=== PATIENT | male | born 1960 | race African-American/Black ===

== ENCOUNTER 2016-03-27 09:45 | Emergency (ER) | payer OTHER ==
[2016-03-27 10:03] VITALS: TEMP 98.1; BMI 28.8
[2016-03-27] MEDS ORDERED: SODIUM CHLORIDE 1,000 ML IV ONE (10:54)
[2016-03-27] MEDS ORDERED: KETOROLAC TROMETHAMINE 30 MG/1 ML VIAL IVPUSH ONE (10:54)
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
[2016-03-27] MEDS ORDERED: SODIUM CHLORIDE FOR INHALATION 3 ML VIAL.NEB IH ONE (10:58)
[2016-03-27] MEDS ORDERED: KETOROLAC TROMETHAMINE 30 MG/1 ML VIAL ONE (10:58)
[2016-03-27 11:25] LABS: BASOPHIL 0.5 % (0-2.0); EOSINOPHIL 1.1 % (0-4.5); MCH 22.4 pg (25.7-33.7); MCHC 31.5 g/dl (32.0-35.9); MEAN CELL VOLUME 71.1 fl (80-96); MEAN PLT VOLUME 7.3 fl (7.5-11.1); PLATELET COUNT 213 K/MM3 (134-434); RDW 14.7 % (11.9-15.9); WHITE BLOOD COUNT 4.7 K/mm3 (4.0-10.0)
[2016-03-27 11:56] LABS: ALBUMIN 4.1 g/dl (3.4-5.0); ANION GAP 10 (8-16); CALCIUM 9.5 mg/dL (8.5-10.1); CO2 28 mmol/L (21-32); GLUCOSE,RANDOM 139 mg/dL (74-106); MAGNESIUM 2.1 mg/dL (1.8-2.4); SGOT/AST 27 U/L (15-37); SGPT/ALT 47 U/L (12-78); TOT PROT 7.6 g/dl (6.4-8.2)
[2016-03-27 11:57] LABS: ALK PHOS 108 U/L (45-117); BILIRUBIN,TOTAL 0.5 mg/dL (0.2-1.0)
[2016-03-27] MEDS ORDERED: METOCLOPRAMIDE HCL INJECTION 10 MG/2 ML VIAL IVPUSH ONE (12:23)
[2016-03-27] MEDS ORDERED: ACETAMINOPHEN 325 MG TABLET (FP) PO ONE (12:23)
[2016-03-27] MEDS ORDERED: ACETAMINOPHEN 325 MG TABLET (FP) ONE (12:28)
[2016-03-27] MEDS ORDERED: METOCLOPRAMIDE HCL INJECTION 10 MG/2 ML VIAL ONE (12:28)
[2016-03-27 13:40] VITALS: BP 118/85; PULSE 65
--- NOTE | 2016-03-27 13:42 | EKG ---
Test Reason : Blood Pressure : / mmHG Vent. Rate : 073 BPM Atrial Rate : 073 BPM P-R Int : 176 ms QRS Dur : 082 ms QT Int : 386 ms P-R-T Axes : 080 012 042 degrees QTc Int : 425 ms POOR DATA QUALITY, INTERPRETATION MAY BE ADVERSELY AFFECTED NORMAL SINUS RHYTHM POSSIBLE LEFT ATRIAL ENLARGEMENT BORDERLINE ECG WHEN COMPARED WITH ECG OF 27-MAR-2006 09:04, NO SIGNIFICANT CHANGE WAS FOUND Confirmed by KAYDEN PINTO MD ([id number]) on 03/27/2016 1:41:55 PM Referred By: Confirmed By:KAYDEN PINTO MD
== END 2016-03-27 13:48 | disposition home or self-care (01) ==
LOC: JER 09:45
PROC: 3E0F7GC Introduction of Other Therapeutic Substance into Respiratory Tract, Via Natural or Artificial Opening (ICD-10-PCS; principal; 2016-03-27)
PROC: 3E0333Z Introduction of Anti-inflammatory into Peripheral Vein, Percutaneous Approach (ICD-10-PCS; 2016-03-27)
PROC: 3E033GC Introduction of Other Therapeutic Substance into Peripheral Vein, Percutaneous Approach (ICD-10-PCS; 2016-03-27)
PROC: 3E0337Z Introduction of Electrolytic and Water Balance Substance into Peripheral Vein, Percutaneous Approach (ICD-10-PCS; 2016-03-27)
DX: Z77.098 Contact with and (suspected) exposure to other hazardous, chiefly nonmedicinal, chemicals (principal); W20.8XXA Other cause of strike by thrown, projected or falling object, initial encounter; Y93.89 Activity, other specified; Y92.9 Unspecified place or not applicable; Y99.0 Civilian activity done for income or pay; G44.209 Tension-type headache, unspecified, not intractable; E11.9 Type 2 diabetes mellitus without complications; Z79.84 Long term (current) use of oral hypoglycemic drugs
CPT/HCPCS: 36415; 80053; 83735; 85025; 93005; 93010; 99282-25

== ENCOUNTER 2016-09-20 19:22 | Emergency (ER) | payer OTHER ==
[2016-09-20 19:31] VITALS: BP 143/89; PULSE 70; TEMP 98
--- NOTE | 2016-09-20 19:44 | PDOC ---
History of Present Illness - General Chief Complaint: Pain Stated Complaint: SWOLLEN FOOT Time Seen by Provider: 09/20/16 19:44 - History of Present Illness Initial Comments: 56 year old non insulin dependent diabetic presenting with left calf pain and some slight swelling after a 2.5 mile rune (after not having ran in 10 years). He suffered a sharp pain in his left calf with some leg swelling and slight difficulty with ambulation two weeks ago. He states that the swelling has improved over the past two weeks but was re-injured after trying to run again. Denies any history of blood clots or cardiovascular history. Also does not smoke , drink, or do other drugs. He denies any family history of clots or genetic coagulopathies. 09/20/16 20:51 Past History - Past Medical History Allergies/Adverse Reactions: Allergies Allergy/AdvReac Type Severity Reaction Status Date / Time No Known Allergies Allergy Verified 09/20/16 19:28 Home Medications: Ambulatory Orders Glipizide Xl [Glucotrol *Xl*] 10 mg PO DAILY@0700 12/19/11 Sitagliptin Phos/Metformin HCl [Janumet Xr 100-1,000 mg Tablet] 1 tab PO DAILY 03/27/16 Diabetes: Yes - Immunization History Td Vaccination: Yes Immunization Up to Date: Yes - Psycho/Social/Smoking Cessation Hx Anxiety: No Suicidal Ideation: No Smoking Status: No Smoking History: Never smoked Number of Cigarettes Smoked Daily: 0 Information on smoking cessation initiated: No Hx Alcohol Use: No Drug/Substance Use Hx: No Substance Use Type: None Review of Systems - Review of Systems Constitutional: No: Chills, Diaphoresis, Fever, Loss of Appetite HEENTM: No: Eye Pain, Blurred Vision, Recent change in vision Respiratory: No: Cough, Orthopnea, Shortness of Breath, SOB with Exertion Cardiac (ROS): Yes: Edema. No: Chest Pain, Irregular Heart Rate, Lightheadedness, Palpitations ABD/GI: No: Abdominal Distended, Constipated, Diarrhea, Nausea : No: Burning, Dysuria Musculoskeletal: Yes: Muscle Pain. No: Back Pain Integumentary: No: Bruising, Lesions Neurological: No: Headache, Numbness, Paresthesia *Physical Exam - Vital Signs Last Vital Signs Temp Pulse Resp BP Pulse Ox 98.0 F 70 19 143/89 98 09/20/16 19:29 09/20/16 19:29 09/20/16 19:29 09/20/16 19:29 09/20/16 19:29 - Physical Exam General Appearance: Yes: Nourished, Appropriately Dressed. No: Apparent Distress HEENT: positive: EOMI, KERVIN, Normal Voice Neck: positive: Trachea midline, Normal Thyroid, Supple. negative: Tender, Rigid Respiratory/Chest: positive: Lungs Clear, Normal Breath Sounds. negative: Chest Tender, Respiratory Distress, Accessory Muscle Use Cardiovascular: positive: Regular Rhythm, Regular Rate, S1, S2. negative: Edema , JVD Gastrointestinal/Abdominal: positive: Normal Bowel Sounds, Flat, Soft. negative : Tender Musculoskeletal: positive: Other (Tender left calf to palpation from the achiles to the popliteal with trace pitting edema from dorsum of foot to directly above his ankle joint.) Extremity: positive: Normal Range of Motion, Tender, Other (Able to bare weight and ambulate without gait abnormality) Integumentary: positive: Normal Color, Dry, Warm Neurologic: positive: Fully Oriented, Alert, Normal Mood/Affect Medical Decision Making - Medical Decision Making Healthy 56 year old male with PMH of of non-insulin dependent diabetes present with left calk pain after running. Able to ambulate without difficulty and no bony tenderness. We performed a doppler US given concern of unilateral pitting edema which was negative. His CK was only 306 as well which rules out concern of rhabdo. This is most likely a muscular strain of his gastrocnemius that will resolve with symptomatic therapy and rest. Will discharge patient home and advise to use Motrin for pain. 09/20/16 22:22 *DC/Admit/Observation/Transfer Diagnosis at time of Disposition: Gastrocnemius strain, left - Discharge Dispostion Disposition: HOME Condition at time of disposition: Improved Admit: No - Referrals Referrals: Trey Bruno MD [Primary Care Provider] - - Patient Instructions Printed Discharge Instructions: Calf Muscle Strain Additional Instructions: You were seen for a pain in your left calf that we believe is most likely a strain of your muscle. Please take Motrin as needed and rest, ice, and elevate your calf when you are sitting down. We recommend refraining from running or jogging for another week or so until the swelling and pain are gone. When you start running again, you should begin with shorter distances at slower speeds to avoid re-injuring your muscle. - Attestations Physician Attestion: 09/20/16 22:31 I, Dr. Nelly Mccann, attest that this document has been prepared under my direction and personally reviewed by me in its entirety. I further attest, that it accurately reflects all work, treatment, procedures and medical decision -making performed by me.
--- NOTE | 2016-09-20 19:45 | PDOC ---
Attending Attestation - Resident Resident Name: RamyTiffanykarolinapepe - ED Attending Attestation I have performed the following: I have examined & evaluated the patient, The case was reviewed & discussed with the resident, I agree w/resident's findings & plan, Exceptions are as noted - HPI HPI: 56 yo M history DM presents with L calf pain. He states that he recently started running for the first time in 10 years. After his first run, he noted that both of his calves were hurting. He states that he was not wearing proper running shoes. However, he ran a second time a few days later in the same shoes , the pain was much worse, making it difficult to walk up and down stairs. He denies any weakness, numbness. No skin rash. He notes swelling in the L leg that is not present in the R leg. - Physicial Exam PE: GENERAL: Awake, alert, and fully oriented, in no acute distress HEAD: No signs of trauma EYES: PERRLA, EOMI, sclera anicteric, conjunctiva clear ENT: Auricles normal inspection, hearing grossly normal, nares patent, oropharynx clear without exudates. Moist mucosa NECK: Normal ROM, supple, no lymphadenopathy, JVD, or masses LUNGS: Breath sounds equal, clear to auscultation bilaterally. No wheezes, and no crackles HEART: Regular rate and rhythm, normal S1 and S2, no murmurs, rubs or gallops ABDOMEN: Soft, nontender, normoactive bowel sounds. No guarding, no rebound. No masses EXTREMITIES: Normal range of motion, 1+ pitting edema to the L lower leg, to mid -calf. R lower extremity with no edema. No clubbing or cyanosis. No cords, erythema, or tenderness NEUROLOGICAL: Cranial nerves II through XII grossly intact. Normal speech, normal gait SKIN: Warm, Dry, normal turgor, no rashes or lesions noted. - Medical Decision Making Patient with pitting edema to the affected leg, no edema to the R leg. He is low risk for DVT, and it is more likely to be related to the running, but with a musculoskeletal or ligamentous injury, would expect non-pitting edema. Will obtain doppler to r/o. Also will send CK, as the muscle is rather tender and firm. Distal pulses are intact, compartment syndrome unlikely.
[2016-09-20 20:13] VITALS: BMI 27.9
[2016-09-20] MEDS ORDERED: IBUPROFEN 600 MG TABLET (FP) PO ONE ×2 (21:30→21:35)
== END 2016-09-20 22:43 | disposition home or self-care (01) ==
LOC: JER 19:22
DX: S86.812A Strain of other muscle(s) and tendon(s) at lower leg level, left leg, initial encounter (principal); Y93.02 Activity, running; Y92.89 Other specified places as the place of occurrence of the external cause
CPT/HCPCS: 36415; 93971-TC; 99282-25

== ENCOUNTER 2017-05-07 17:53 | Emergency (ER) | payer OTHER ==
[2017-05-07 18:09] VITALS: BP 183/100; PULSE 82; TEMP 98.4; BMI 32.3
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
== END 2017-05-08 01:08 | disposition home or self-care (01) ==
LOC: JER 17:53
DX: S13.4XXA Sprain of ligaments of cervical spine, initial encounter (principal); V43.52XA Car driver injured in collision with other type car in traffic accident, initial encounter; Y93.89 Activity, other specified; Y92.410 Unspecified street and highway as the place of occurrence of the external cause
CPT/HCPCS: 70450-TC; 71046-TC-FY; 72125-TC; 73030-TC-RT-FY; 99282-25

== ENCOUNTER 2018-11-09 18:05 | Emergency (ER) | payer OTHER | END 2018-11-09 19:45 | disposition home or self-care (01) | LOC: JERFT 18:05 ==

== ENCOUNTER 2018-11-15 17:56 | Emergency (ER) | payer OTHER ==
[2018-11-15 18:15] VITALS: BP 128/77; TEMP 98.5; BMI 27.9
--- NOTE | 2018-11-15 20:15 | PDOC ---
History of Present Illness - General Chief Complaint: Revisit,Wound Recheck Stated Complaint: WOUND CHECK Time Seen by Provider: 11/15/18 20:15 History Source: Patient Exam Limitations: No Limitations - History of Present Illness Initial Comments: 11/15/18 20:44 HPI: 58yo M with diabetes presenting 6 days s/p R index finger laceration repair with swelling / pain / redness. Patient had been taking his 500mg Keflex BID as prescribed and rinsing with soap and water as directed. On Friday noted that his finger was starting to turn red and swell. Over the weekend the swelling reached the point of popping two of his stitches. He denies fevers / chills or systemic symptoms. Reports his blood sugars are labile but generally good. All: NKDA Meds: per chart PMH: as above PSH: per chart Past History - Travel Traveled outside of the country in the last 30 days: No Close contact w/someone who was outside of country & ill: No - Past Medical History Allergies/Adverse Reactions: Allergies Allergy/AdvReac Type Severity Reaction Status Date / Time No Known Allergies Allergy Verified 11/15/18 18:15 Home Medications: Ambulatory Orders Glipizide Xl [Glucotrol *Xl*] 10 mg PO DAILY@0700 12/19/11 Sitagliptin Phos/Metformin HCl [Janumet Xr 100-1,000 mg Tablet] 1 tab PO DAILY 03/27/16 Oxycodone HCl/Acetaminophen [Percocet 5-325 mg Tablet] 1 tab PO Q8H PRN #8 tablet MDD 3 tabs 05/07/17 Cephalexin [Keflex] 500 mg PO BID #14 capsule 11/09/18 Clindamycin [Cleocin -] 300 mg PO QID #28 capsule 11/15/18 COPD: No Diabetes: Yes HTN: Yes - Immunization History Td Vaccination: Yes Immunization Up to Date: Yes - Suicide/Smoking/Psychosocial Hx Smoking Status: No Smoking History: Never smoked Have you smoked in the past 12 months: No Number of Cigarettes Smoked Daily: 0 Hx Alcohol Use: No Drug/Substance Use Hx: No Substance Use Type: None Review of Systems - Review of Systems Able to Perform ROS?: Yes Is the patient limited Beninese proficient: Yes Constitutional: No: Chills, Diaphoresis, Fever, Weakness HEENTM: No: Recent change in vision, Nose Congestion, Throat Swelling, Mouth Pain Respiratory: No: Cough, Shortness of Breath, Wheezing Cardiac (ROS): No: Chest Pain, Edema, Irregular Heart Rate, Palpitations ABD/GI: No: Constipated, Diarrhea, Nausea, Vomiting : No: Burning, Dysuria, Pain Musculoskeletal: No: Back Pain, Muscle Weakness Integumentary: No: Bruising, Pruritus, Rash Neurological: No: Headache, Numbness, Tingling, Weakness Psychiatric: No: Emotional Problems, Change in Appetite Hematologic/Lymphatic: No: Anemia, Blood Clots, Easy Bruising All Other Systems: Reviewed and Negative *Physical Exam - Vital Signs Last Vital Signs Temp Pulse Resp BP Pulse Ox 98.5 F 100 H 18 128/77 99 11/15/18 18:13 11/15/18 18:13 11/15/18 18:13 11/15/18 18:13 11/15/18 18:13 - Physical Exam Comments: 11/15/18 20:52 Vitals reviewed, notable for afebrile with borderline tachycardia Gen: WDWN man, NAD, appears stated age CV: RRR, nl s1/s2, no murmurs appreciated Pulm: CTABL, normal WOB, no wheezes / rales / rhonchi Ext: Fight index finger with swelling (2x size of left) with warmth, tenderness , erythema, two stitches missing ([address]), no discharge from wound or surrounding fluctuance Neuro: alert and oriented, sensation intact in affected finger, strength exam limited by swelling and pain Msk: able to bend affected finger minimally (2/2 swelling) ED Treatment Course - LABORATORY CBC & Chemistry Diagram: 11/15/18 20:30 11/15/18 20:30 Medical Decision Making - Medical Decision Making 11/15/18 20:57 58yo M with diabetes presenting 6 days s/p left second digit laceration repair with swelling / pain / redness. Concerning for failure of antibiotic regimen and development of cellulitis, unlikely abscess or osteo given clincical exam. No systemic symptoms, will step up antibiotic therapy, likely discharge with stronger PO regimen and strict return precautions. -Clindamycin 600mg IV -CBC, CMP -ESR, CRP -Acetone 11/15/18 21:31 -No leukoctosis -3.8 CRP (baseline study) -ESR, CMP, Acetone pending 11/15/18 22:07 -Borderline tachycardia, gave 1L IVF 11/15/18 22:32 -ESR 27 -Acetone Negative Dispo: Home 11/15/18 23:05 -Patient left the department before CMP returned, glucose found to be 620 -Pt asx at time of discharge with negative acetone, negative gap, s/p 1L IVF after labs drawn -Call placed to patient's cell phone for return vs home insulin for hyperglycemia *DC/Admit/Observation/Transfer Diagnosis at time of Disposition: Cellulitis Qualifiers: Site of cellulitis: extremity Site of cellulitis of extremity: finger Laterality: right Qualified Code(s): L03.011 - Cellulitis of right finger - Discharge Dispostion Disposition: HOME Condition at time of disposition: Improved Decision to Admit order: No - Prescriptions Prescriptions: Clindamycin [Cleocin -] 300 mg PO QID #28 capsule - Referrals Referrals: [facility] [place] Group] - Patient Instructions Printed Discharge Instructions: DI for Cellulitis -- Adult Additional Instructions: You have been diagnosed with a cellulitis of your finger. A prescription for antibiotics has been sent to your pharmacy. Please discontinue your previous antibiotics and start clindamycin as directed. You can use over the counter pain medications such as Tylenol or Motrin as directed on the bottle. Please follow up with your PCP, the provided clinic, or the ED on the 11/19/18 for suture removal and reassessment of your cellulitis. Return to the ED for any new or concerning symptoms including but not limited to ; worsening swelling / expanding redness / or pain that doesn't respond to over the counter pain medication. Also return if you develop any fevers, chills, or notice draining from the wound as these may be signs that you have a worsening infection and require stronger antibiotics via IV. - Post Discharge Activity
--- NOTE | 2018-11-15 20:27 | PDOC ---
Attending Attestation - Resident Resident Name: Cornelius Tran - ED Attending Attestation I have performed the following: I have examined & evaluated the patient, The case was reviewed & discussed with the resident, I agree w/resident's findings & plan - HPI HPI: 11/15/18 21:12 Pt comes for a wound check; his index finger sutures are healing; some swelling and tissue is apparent in the suture line. Pt is concerned because there is surrounding erythema and he has some pain in the area. Afebrile. Pt has been taking meds only for 2 days. - Physicial Exam PE: 11/15/18 21:14 Agree with resident exam. Pt is afebrile VSS Heart and lungs and abd normal exam. No pitting edema of extremitites. Pt has swelling of the index finger; clean healing sutures; some surrounding erythema, no visible lymphangitis, but pt reports pain running up the finger to the hand. FROM of finger and hand; sensation intact. - Medical Decision Making 11/15/18 21:40 CBC normal; high c-rp Chem pending 11/15/18 22:32 CHem still pending. Pt is being hydrated and he will be discahrged home. 11/15/18 22:32 Stable for d/c home 11/15/18 22:57 Pt was hydrated and he will take his own DM meds at home.
[2018-11-15] MEDS ORDERED: CLINDAMYCIN 600MG PREMIX IVPB 600 MG/50 ML BAG IVPB ONE ×2 (20:28→20:50)
[2018-11-15 20:52] LABS: BASO % 0.9 % (0-2.0); EOS % 1.5 % (0-4.5); HEMATOCRIT 41.6 % (35.4-49); HEMOGLOBIN 12.8 GM/dL (11.7-16.9); LYMPH % 32.2 % (8-40); MCH 21.8 pg (25.7-33.7); MCHC 30.9 g/dl (32.0-35.9); MEAN CELL VOLUME 70.7 fl (80-96); MEAN PLT VOLUME 8.2 fl (7.5-11.1); MONO % 11.3 % (3.8-10.2); NEUT % 54.1 % (42.8-82.8); PLATELET COUNT 216 K/MM3 (134-434); RBC 5.88 M/mm3 (4.00-5.60); RDW 14.5 % (11.9-15.9); WHITE BLOOD COUNT 5.2 K/mm3 (4.0-10.0)
[2018-11-15 21:38] LABS: ERYTHROCYTE SEDIMENTATION RATE 27 mm/hr (0-20)
[2018-11-15 21:57] LABS: ACETONE SERUM NEGATIVE (NEGATIVE)
[2018-11-15] MEDS ORDERED: SODIUM CHLORIDE 0.9% 500 ML INFUS.BAG IV ONE (21:57)
[2018-11-15 22:46] LABS: ALBUMIN 3.8 g/dl (3.4-5.0); ALK PHOS 127 U/L (45-117); ANION GAP 8 MMOL/L (8-16); BILIRUBIN,TOTAL 0.4 mg/dL (0.2-1); BLOOD UREA NITROGEN 19.1 mg/dL (7-18); CALCIUM 9.2 mg/dL (8.5-10.1); CHLORIDE 97 mmol/L (98-107); CO2 27 mmol/L (21-32); CREATININE 1.3 mg/dL (0.55-1.3); POTASSIUM 4.6 mmol/L (3.5-5.1); SGOT/AST 22 U/L (15-37); SGPT/ALT 33 U/L (13-61); SODIUM 132 mmol/L (136-145); TOT PROT 7.3 g/dl (6.4-8.2)
[2018-11-15 22:48] LABS: GLUCOSE,RANDOM 620 mg/dL (74-106)
[2018-11-15 23:00] VITALS: PULSE 86
[2018-11-15 23:01] LABS: PLATELET ESTIMATE NORMAL
== END 2018-11-15 23:01 | disposition home or self-care (01) ==
LOC: JER 17:56
DX: T81.49XA Infection following a procedure, other surgical site, initial encounter (principal); L03.011 Cellulitis of right finger
CPT/HCPCS: 36415; 80053; 82009; 85025; 85651; 86140; 99282-25

== ENCOUNTER 2019-05-23 18:07 | Emergency (ER) | payer OTHER ==
[2019-05-23 18:45] VITALS: TEMP 97.8
--- NOTE | 2019-05-23 19:05 | PDOC ---
History of Present Illness - General Stated Complaint: DIZZINESS,BODY ACHES, COUGH History Source: Patient Exam Limitations: No Limitations - History of Present Illness Initial Comments: 05/23/19 19:00 Patient is a 59 year old male with h/o HLD, DM c/o dizziness since last night - feeling that his going to pass out. Patient states has not been eating much. Did not take his medication today, because he had not eaten. Denies any chest pain, sob, cough, fever, abd pain. PMD: Dr. Muñoz PMHX: as above PSOCHX: neg etoh, drug, cig ALL: NKDA MES: glipizide 10mg, Janumet 11/999, statin 20mg Pertinent physical exam findings: Gen: in no acute distress CVS: S1S2 reg LUNG: clear b/l ABD: soft I have ordered the following: labs incl trop, ekg, IVF Patient to proceed to ED for further evaluation pre syncope symptoms Past History - Past Medical History Allergies/Adverse Reactions: Allergies Allergy/AdvReac Type Severity Reaction Status Date / Time No Known Allergies Allergy Verified 11/15/18 18:15 Home Medications: Ambulatory Orders Glipizide Xl [Glucotrol *Xl*] 10 mg PO DAILY@0700 12/19/11 Sitagliptin Phos/Metformin HCl [Janumet Xr 100-1,000 mg Tablet] 1 tab PO DAILY 03/27/16 Oxycodone HCl/Acetaminophen [Percocet 5-325 mg Tablet] 1 tab PO Q8H PRN #8 tablet MDD 3 tabs 05/07/17 Cephalexin [Keflex] 500 mg PO BID #14 capsule 11/09/18 Clindamycin [Cleocin -] 300 mg PO QID #28 capsule 11/15/18 COPD: No Diabetes: Yes HTN: Yes - Immunization History Td Vaccination: Yes Immunization Up to Date: Yes - Psycho Social/Smoking Cessation Hx Smoking Status: No Smoking History: Never smoked Have you smoked in the past 12 months: No Number of Cigarettes Smoked Daily: 0 Information on smoking cessation initiated: No Hx Alcohol Use: No Drug/Substance Use Hx: No Substance Use Type: None *Physical Exam - Vital Signs Last Vital Signs Temp Pulse Resp BP Pulse Ox 97.8 F 55 L 18 104/78 96 05/23/19 18:42 05/23/19 18:42 05/23/19 18:42 05/23/19 18:42 05/23/19 18:42 ED Treatment Course - LABORATORY CBC & Chemistry Diagram: 05/23/19 22:26 05/23/19 22:26 - ADDITIONAL ORDERS Additional order review: Laboratory Results 05/23/19 05/23/19 22:26 18:59 Sodium 136 Potassium 4.1 Chloride 99 Carbon Dioxide 27 Anion Gap 9 BUN 22.7 H Creatinine 1.2 Est GFR (CKD-EPI)AfAm 76.79 Est GFR (CKD-EPI)NonAf 66.26 POC Glucometer 224 Random Glucose 187 H Calcium 8.8 Total Bilirubin 0.7 AST 40 H ALT 84 H Alkaline Phosphatase 74 Creatine Kinase 223 Creatine Kinase Index 0.4 CK-MB (CK-2) 1.0 Troponin I < 0.02 Total Protein 7.8 Albumin 4.0 05/23/19 05/23/19 22:26 18:59 RBC 6.40 H MCV 71.4 L MCHC 31.9 L RDW 14.3 MPV 7.4 L Neutrophils % 51.2 Lymphocytes % 30.8 Monocytes % 17.2 H Eosinophils % 0.0 D Basophils % 0.8 POC Glucometer 224 - RADIOLOGY Radiology Studies Ordered: Category Date Time Status CHEST X-RAY PORTABLE* [RAD] Stat Radiology 05/23/19 19:18 Taken - Medications Given in the ED: ED Medications Discontinued Medications Generic Name Dose Route Start Last Admin Trade Name Freq PRN Reason Stop Dose Admin Sodium Chloride 1,000 ml 05/23/19 19:18 05/23/19 22:54 Normal Saline - IV 05/23/19 19:19 Not Given ONCE ONE Discharge - Discharge Information Problems reviewed: Yes Clinical Impression/Diagnosis: Lightheadedness, Dehydration Condition: Good Disposition: HOME - Follow up/Referral - Patient Discharge Instructions Additional Instructions: Drink lots of water. Take your medication. Follow up with your primary care doctor - Post Discharge Activity
[2019-05-23] MEDS ORDERED: SODIUM CHLORIDE 0.9% 500 ML INFUS.BAG IV ONE (19:18)
--- NOTE | 2019-05-23 22:19 | PDOC ---
History of Present Illness - General Chief Complaint: Lightheaded Stated Complaint: DIZZINESS,BODY ACHES, COUGH Time Seen by Provider: 05/23/19 22:18 History Source: Patient Exam Limitations: No Limitations - History of Present Illness Initial Comments: 05/23/19 22:19 59yM w PMHx HLD, DM presenting w lightheadedness after not eating dinner after work shift yesterday. Did not take meds today or eat anything today d/t continued lightheadedness. Denies fever, cough, nausea/vomiting, chest/ ABD pain, SOB, urinary/bowel mvmt changes. Past History - Past Medical History Allergies/Adverse Reactions: Allergies Allergy/AdvReac Type Severity Reaction Status Date / Time No Known Allergies Allergy Verified 11/15/18 18:15 Home Medications: Ambulatory Orders Glipizide Xl [Glucotrol *Xl*] 10 mg PO DAILY@0700 12/19/11 Sitagliptin Phos/Metformin HCl [Janumet Xr 100-1,000 mg Tablet] 1 tab PO DAILY 03/27/16 Oxycodone HCl/Acetaminophen [Percocet 5-325 mg Tablet] 1 tab PO Q8H PRN #8 tablet MDD 3 tabs 05/07/17 Cephalexin [Keflex] 500 mg PO BID #14 capsule 11/09/18 Clindamycin [Cleocin -] 300 mg PO QID #28 capsule 11/15/18 COPD: No Diabetes: Yes HTN: Yes - Immunization History Td Vaccination: Yes Immunization Up to Date: Yes - Psycho Social/Smoking Cessation Hx Smoking Status: No Smoking History: Never smoked Have you smoked in the past 12 months: No Number of Cigarettes Smoked Daily: 0 Information on smoking cessation initiated: No Hx Alcohol Use: No Drug/Substance Use Hx: No Substance Use Type: None Review of Systems - Review of Systems Constitutional: No: Chills, Fever HEENTM: No: Eye Pain, Ear Discharge Respiratory: No: Cough, Shortness of Breath Cardiac (ROS): Yes: Lightheadedness. No: Chest Pain, Palpitations ABD/GI: No: Abdominal Distended, Constipated, Diarrhea, Nausea, Vomiting : No: Burning, Dysuria Musculoskeletal: No: Back Pain, Joint Pain Integumentary: No: Bruising, Dryness Neurological: No: Headache, Seizure Psychiatric: No: Anxiety, Depression Endocrine: No: Intolerance to Cold, Intolerance to Heat Hematologic/Lymphatic: No: Anemia, Blood Clots *Physical Exam - Vital Signs Last Vital Signs Temp Pulse Resp BP Pulse Ox 97.8 F 55 L 18 104/78 96 05/23/19 18:42 05/23/19 18:42 05/23/19 18:42 05/23/19 18:42 05/23/19 18:42 - Physical Exam General Appearance: Yes: Nourished, Appropriately Dressed. No: Apparent Di stress HEENT: positive: EOMI, KERVIN, Normal Voice, Hearing Grossly Normal. negative: Scleral Icterus (R), Scleral Icterus (L) Respiratory/Chest: positive: Lungs Clear, Normal Breath Sounds. negative: Chest Tender, Respiratory Distress, Crackles, Rales, Rhonchi, Stridor, Wheezing Cardiovascular: positive: Regular Rhythm, S1, S2, Bradycardia. negative: Edema, Murmur Gastrointestinal/Abdominal: positive: Normal Bowel Sounds, Flat, Soft. negative: Tender, Organomegaly Extremity: positive: Delayed Capillary Refill Integumentary: positive: Normal Color, Dry Neurologic: positive: olive pitter II-XII NML intact, Fully Oriented, Alert, Normal Mood/Affect, Normal Response, Motor Strength 5/5, Responsive. negative: Numbness, Sensory Deficit, Confused, Disoriented ED Treatment Course - LABORATORY CBC & Chemistry Diagram: 05/23/19 22:26 05/23/19 22:26 - ADDITIONAL ORDERS Additional order review: Laboratory Results 05/23/19 18:59 POC Glucometer 224 05/23/19 18:59 POC Glucometer 224 Medical Decision Making - Medical Decision Making 05/23/19 22:41 EKG - NSR, HR 82, QTc 425, no ST changes CXR - clear lung blanchard --- 59yM w PMHx HLD, DM presenting w 1d lightheadedness likely d/t dehydration and poor PO appetite. Low concern for ACS (no ST changes or chest pain, neg trop) vs anemia (Hgb wnl) vs hypoglycemia (BG 224). Given PO fluids. DC w PCP f/u Discharge - Discharge Information Problems reviewed: Yes Clinical Impression/Diagnosis: Lightheadedness, Dehydration Condition: Good Disposition: HOME - Follow up/Referral - Patient Discharge Instructions Additional Instructions: Drink lots of water. Take your medication. Follow up with your primary care doctor - Post Discharge Activity
[2019-05-23 22:44] LABS: BASO % 0.8 % (0-2.0); HEMATOCRIT 45.7 % (35.4-49); HEMOGLOBIN 14.6 GM/dL (11.7-16.9); LYMPH % 30.8 % (8-40); MCH 22.7 pg (25.7-33.7); MCHC 31.9 g/dl (32.0-35.9); MEAN CELL VOLUME 71.4 fl (80-96); MEAN PLT VOLUME 7.4 fl (7.5-11.1); MONO % 17.2 % (3.8-10.2); NEUT % 51.2 % (42.8-82.8); PLATELET COUNT 166 K/MM3 (134-434); RDW 14.3 % (11.9-15.9); WHITE BLOOD COUNT 4.6 K/mm3 (4.0-10.0)
--- NOTE | 2019-05-23 22:52 | PDOC ---
Documentation entered by Marina Gandhi SCRIBE, acting as scribe for Josefina Ferrera MD. Josefina Ferrera MD: This documentation has been prepared by the Oksana alvarado Nirvannie, SCRIBE, under my direction and personally reviewed by me in its entirety. I confirm that the documentation accurately reflects all work, treatment, procedures, and medical decision making performed by me. Attending Attestation - Resident Resident Name: Ronald Esteban - ED Attending Attestation I have performed the following: I have examined & evaluated the patient, The case was reviewed & discussed with the resident, I agree w/resident's findings & plan, Exceptions are as noted - HPI HPI: 05/23/19 22:45 59 yo male has felt lightheadedness last night and intermittent today. He has had decreased eating today so did not take his diabetic medications He DENIES fever,chills,shortness of breath,nausea ,vomiting or cough or chest pain - Physicial Exam PE: 05/23/19 22:49 wnwd 59 yo male in no acute distress head ncat neck supple lungs cta b/l cvs [id number] abd nontender Extremities skin warm and dry neuro axox3 ,ambulatory - Medical Decision Making 05/23/19 22:52 ekg nsr @ 82 bpm 05/23/19 22:53 cxr no infiltrates,no effusions 05/23/19 23:34 [id number] neg trop no focal neuro deficits d/c home Discharge - Discharge Information Problems reviewed: Yes Clinical Impression/Diagnosis: Lightheadedness, Dehydration Condition: Good Disposition: HOME - Follow up/Referral - Patient Discharge Instructions Additional Instructions: Drink lots of water. Take your medication. Follow up with your primary care doctor - Post Discharge Activity
[2019-05-23 23:09] LABS: ALK PHOS 74 U/L (45-117); ANION GAP 9 MMOL/L (8-16); BILIRUBIN,TOTAL 0.7 mg/dL (0.2-1); BLOOD UREA NITROGEN 22.7 mg/dL (7-18); CALCIUM 8.8 mg/dL (8.5-10.1); CHLORIDE 99 mmol/L (98-107); CO2 27 mmol/L (21-32); CREATININE 1.2 mg/dL (0.55-1.3); GLUCOSE,RANDOM 187 mg/dL (74-106); POTASSIUM 4.1 mmol/L (3.5-5.1); SGOT/AST 40 U/L (15-37); SGPT/ALT 84 U/L (13-61); SODIUM 136 mmol/L (136-145); TOT PROT 7.8 g/dl (6.4-8.2)
[2019-05-24 07:05] VITALS: BP 110/70; PULSE 62
--- NOTE | 2019-05-24 14:02 | EKG ---
Test Reason : Blood Pressure : / mmHG Vent. Rate : 082 BPM Atrial Rate : 082 BPM P-R Int : 162 ms QRS Dur : 084 ms QT Int : 364 ms P-R-T Axes : 069 -10 025 degrees QTc Int : 425 ms NORMAL SINUS RHYTHM NORMAL ECG WHEN COMPARED WITH ECG OF 27-MAR-2016 10:48, NO SIGNIFICANT CHANGE WAS FOUND Confirmed by HENRY WALKER MD ([id number]) on 05/24/2019 2:01:51 PM Referred By: Confirmed By:HENRY WALKER MD
== END 2019-05-23 23:52 | disposition home or self-care (01) ==
LOC: JER 18:07
DX: R42 Dizziness and giddiness (principal); E86.0 Dehydration
CPT/HCPCS: 36415; 71045-TC-FY; 80053; 82550; 82553; 82962; 84484; 85025; 93005; 93010; 99285-25

== ENCOUNTER 2020-10-17 10:34 | Emergency (ER) | payer OTHER ==
[2020-10-17 10:46] VITALS: BP 129/79; PULSE 79; TEMP 97; BMI 28.4
[2020-10-17] MEDS ORDERED: DIPHTH,PERTUSS(ACELL),TET 0.5 ML DISP.SYRIN IM ONE ×2 (11:17→11:31)
== END 2020-10-17 11:37 | disposition home or self-care (01) ==
LOC: JERFT 10:34
PROC: 3E0234Z Introduction of Serum, Toxoid and Vaccine into Muscle, Percutaneous Approach (ICD-10-PCS; principal; 2020-10-17)
PROC: 0HQEXZZ Repair Left Lower Arm Skin, External Approach (ICD-10-PCS; principal; 2020-10-17)
DX: S51.812A Laceration without foreign body of left forearm, initial encounter (principal); W26.8XXA Contact with other sharp object(s), not elsewhere classified, initial encounter
CPT/HCPCS: 12002; 90471; 90715; 99282-25

== ENCOUNTER 2020-10-24 16:19 | Emergency (ER) | payer OTHER ==
[2020-10-24 16:41] VITALS: BP 125/76; PULSE 74; TEMP 98.1; BMI 30.1
== END 2020-10-24 17:17 | disposition home or self-care (01) ==
LOC: JERFT 16:19
DX: Z48.02 Encounter for removal of sutures (principal)
CPT/HCPCS: 99281-25